=== PATIENT | female | born 1980 | race Caucasian/White ===

== ENCOUNTER 2021-01-14 22:10 | Emergency (ER) | payer OTHER ==
[~2021-01-14] VITALS: Ht 170.2 cm; Wt 86.2 kg
[~2021-01-14 22:10] MED LIST: ACET325; ACET325 PO; ALBU90OI INH; ALPR.5 PO; ALPR1 PO; AMIT25 PO; AMOX500 PO; AZIT250 PO; BENZ100A PO; CELE200 PO; CEPH500 PO; CIPRO500 MG PO; CODGUAEL PO; CYCL10 PO; Cipro500 MG PO; Cleocin HCl300 MG PO; DOXY100 PO; DOXY100T53 PO; ESTA1 PO; GABA300T24; GABA600 PO; HYDACE5 PO; HYDACE5325 PO; HYDGUAL120 PO; HYDMOR2 PO; IBUP400 PO; IBUP600 PO; IBUP800; IBUP800 PO; LEVFLO500 PO; MEDR150I; METERG.2 PO; METPRE4DP PO; METR500 PO; MULVITMINE; Monodox100 MG PO; NAPR220; NAPR375 PO; Naprosyn375 MG PO; OXYACE5T PO; OXYACE7.5T PO; OXYC10ER PO; PARO30; PENVK500 PO; PRENZ; PROACE100 PO; Percocet 5-3251 EACH PO; Prednisone20 MG PO; Pyridium200 MG PO; RXHYDACE PO; RXHYDGUAS PO; RXOXYACE PO; RXPROACE PO; Robaxin500 MG PO; SERT100 PO; SERT25 PO; SERT50 PO; SPACE CHAMBER1 EACH MC; SUBOXONE 12 MG1 EACH SL; TRAM50 PO; Ultram50 MG PO; ZOLP10 PO; Zithromax250 MG PO; Zofran4 MG PO
[2021-01-15] MEDS ORDERED: NAPROXEN250 M1 PO (00:48)
== END 2021-01-15 01:05 | disposition home or self-care (01) ==
LOC: ER 22:10
DX: S39.012A Strain of muscle, fascia and tendon of lower back, initial encounter (principal); F17.200 Nicotine dependence, unspecified, uncomplicated; Z88.5 Allergy status to narcotic agent; Z88.2 Allergy status to sulfonamides; Z88.8 Allergy status to other drugs, medicaments and biological substances; Z79.899 Other long term (current) drug therapy; X50.1XXA Overexertion from prolonged static or awkward postures, initial encounter
CPT/HCPCS: 99283; A9270